=== PATIENT | female | born 1960 | race Caucasian/White ===

== ENCOUNTER 2020-01-03 12:25 | Outpatient (CLI) | payer BC, SELFPAY ==
--- NOTE | ~2020-01-03 | XR_ITS ---
XR hand LT min 3V DATE: 01/03/2020 12:41 INDICATION: Smashed distal end of third finger one week ago TECHNIQUE: 3 views COMPARISON: None FINDINGS: There is a nondisplaced comminuted fracture of the tuft of the distal phalanx of the third digit. No other fracture or dislocation. No periosteal reaction or bone destruction. There is osteoarthritis particularly at the distal interphalangeal joint of the second digit. IMPRESSION: Nondisplaced tuft fracture of the distal phalanx of third digit Reviewed, dictated and finalized at location A.
== END 2020-01-03 12:26 | disposition home or self-care (01) ==
LOC: ANHIMG 12:32
PROVIDERS: PCP Family Medicine; Visit Provider Family Medicine
DX: S62.663A Nondisplaced fracture of distal phalanx of left middle finger, initial encounter for closed fracture (principal); X58.XXXA Exposure to other specified factors, initial encounter
CPT/HCPCS: 73130